=== PATIENT | male | born 1945 | race Caucasian/White ===

== ENCOUNTER 2024-03-03 12:58 | Emergency (ER) | payer OTHER, SELFPAY ==
[2024-03-03 13:10] VITALS: BP 120/70; PULSE 63; RESP 17; TEMP 36.8; O2SAT 96; BMI 25.8
--- NOTE | 2024-03-03 13:27 | USR_ITS ---
PROCEDURE INFORMATION: Exam: US Scrotum Exam date and time: 03/03/2024 2:30 PM Age: 78 years old Clinical indication: Edema; Prior surgery; Surgery date: <1 month; Surgery type: Not in the scrotum, but patient had bilateral inguinal hernia repairs nine days ago; Additional info: Scrotal swelling TECHNIQUE: Imaging protocol: Real-time ultrasound of the scrotum and contents with color Doppler and image documentation. COMPARISON: No relevant prior studies available. FINDINGS: Right testicle: Normal. No mass. Normal color Doppler and arterial waveforms. No torsion. Left testicle: Small scattered calcifications noted. No mass. Normal color Doppler and arterial waveforms. No torsion. Epididymides: Epididymal cysts on right side largest measuring 2.1 x 1.8 cm. Left epididymis show heterogeneous appearance with diffuse increased vascularity. Scrotum/soft tissues: 2 x 1.4 x 3 cm loculated fluid seen within the right scrotal sac with internal echoes. No blood flow identified. Small bilateral hydrocele. Diffuse skin thickening of the scrotum bilaterally US/US scrotum [id number] IMPRESSION: 1. No evidence of torsion. 2. Increased vascularity and heterogeneous appearing left epididymis suspicious for epididymitis. 3. 2 x 1.4 x 3 cm loculated fluid within the right scrotal sac. Possible seroma. Recommend follow-up. 4. Diffuse scrotal wall thickening throughout. No significant loculated fluid within the scrotal wall identified. 5. Small bilateral hydroceles. 6. Consider CT scan if there is concern for hernia repair related changes in the pelvis/inguinal canal.
--- NOTE | 2024-03-03 13:27 | CTR_ITS ---
PROCEDURE INFORMATION: Exam: CT Abdomen And Pelvis With Contrast Exam date and time: 03/03/2024 3:08 PM Age: 78 years old Clinical indication: Pain; Other: Scrotum; Prior surgery; Surgery date: 3-7 days post-operative; Surgery type: Inguinal hernia; Additional info: Post inguinal hernia repair scrotal swelling TECHNIQUE: Imaging protocol: Computed tomography of the abdomen and pelvis with contrast. Radiation optimization: All CT scans at this facility use at least one of these dose optimization techniques: automated exposure control; mA and/or kV adjustment per patient size (includes targeted exams where dose is matched to clinical indication); or iterative reconstruction. Contrast material: OMNI 350; Contrast volume: 100 ml; Contrast route: INTRAVENOUS (IV); COMPARISON: US scrotum [id number] 03/03/2024 2:30 PM RADIATION DOSE METRICS: Total DLP (mGy-cm): 775.66 FINDINGS: Lungs: Mild atelectatic changes. Liver: Unremarkable. Gallbladder and biliary ducts: Normal. Pancreas: Normal. No ductal dilation. Spleen: Normal. No splenomegaly. Adrenal glands: Normal. Kidneys and ureters: Normal. No hydronephrosis. Stomach and bowel: Mild wall thickening and edema of proximal sigmoid colon in left anterior pelvis. Appendix: No evidence of appendicitis. Intraperitoneal space: No free air. No significant fluid collection. Vasculature: No abdominal aortic aneurysm. Atherosclerotic calcifications noted in aorta and iliac vessels. Lymph nodes: No enlarged lymph nodes. Urinary bladder: Unremarkable as visualized. Reproductive: There is fluid and small amount of air in left inguinal canal. Fluid extends to left scrotum. Diffuse skin thickening and edema of entire scrotum. Minimal hypervascularity in left epididymis noted. Focal fat density in proximal aspect of the left inguinal canal noted likely from postoperative change. Bones/joints: No acute fracture. Soft tissues: Left inguinal canal findings as above. CT/CT abdomen pelvis w con* [id number] IMPRESSION: 1. Fluid-filled left inguinal canal extending to left scrotum. Very small pockets air noted proximally. Diffuse edema of the scrotum. Postop change with fluid and inflammation suspected. Infection cannot be excluded. Correlate clinically. 2. Minimal inflammation of proximal sigmoid colon in left anterior pelvis without signs of obstruction.
--- NOTE | 2024-03-03 13:28 | ED_ITS ---
HPI - Male Genitourinary 2 General: Chief complaint: Urogenital-Male Stated complaint: swollen scrotum Time Seen by Provider: 03/03/24 13:14 History of Present Illness: 78-year-old male patient comes in today for concerns of scrotal swelling. On exam patient appears nontoxic. Patient had a inguinal hernia repair on the and has been using ice packs and baths to help with the swelling. Patient reports minimal to no pain. Patient has completed antibiotics. Patient denies any fever or night sweats. Review of Systems 2 General: Reports: 10 or more systems reviewed and unremarkable except in HPI and below Physical Exam 2 Const: COMMON NORMALS: alert HENMT: COMMON NORMALS: normocephalic HEAD & SCALP: normocephalic Neck/C-Spine: COMMON NORMALS: full ROM Resp: COMMON NORMALS: normal respiratory effort and clear to auscultation bilaterally AUSCULTATION: clear to auscultation bilaterally Cardio: COMMON NORMALS: regular rate RATE: regular rate GI: COMMON NORMALS: Soft to palpation and non-tender PALPATION: Yes Soft to palpation : SCROTUM: No Scrotal tenderness present, Yes erythematous, Yes ecchymosis, Yes edematous and Yes scrotal swelling Back/Pelvis: COMMON NORMALS: thoracic and lumbar spine normal to inspection Extremity: COMMON NORMALS: normal to inspection Neuro: SENSORIUM/ORIENTATION: Yes alert Skin: COMMON NORMALS: turgor normal GENERAL SKIN EXAM: turgor normal Course 2 Vital Signs: Vital signs: Vital Signs Temperature 98.3 F 03/03/24 13:10 Pulse Rate 66 03/03/24 16:00 Respiratory Rate 17 03/03/24 13:10 Blood Pressure 119/75 03/03/24 16:00 Pulse Oximetry 95 03/03/24 16:00 Oxygen Delivery Me thod Room Air 03/03/24 16:00 MDM - Male Medical Decision Making Patient had a inguinal hernia repair on the . Patient has had some increasing scrotal swelling which has had some waxing and waning and improvement with ice packs and ice bath. Patient reports no significant pain or any fever or night sweats. Exam notes some edematous scrotum with some erythema and some ecchymosis. Patient has bruising around the umbilicus. Bowel sounds are present. Abdomen soft nontender. Vital signs are normal. Differential diagnosis includes scrotal edema, surgical abscess, surgical seroma, wound infection. CBC and CMP was unremarkable. Ultrasound noted significant fluid in the scrotum with some mild induration but good blood flow to both testicles. There also seem to be some epididymitis. CT of the abdomen pelvis saw postsurgical changes with fluid and some inflammation. It could not be ruled out there was a infection along the surgical site. Believe most likely patient has a seroma with a possible infection. Will go ahead and treat with Cipro and Flagyl and recommend follow-up with surgeons office in the morning. Patient reported understanding and agreed to plan. Lab Data 03/03/24 13:30 03/03/24 13:30 Radiology Impressions Abdomen/Pelvis CT 03/03/24 13:27 IMPRESSION: 1. Fluid-filled left inguinal canal extending to left scrotum. Very small pockets air noted proximally. Diffuse edema of the scrotum. Postop change with fluid and inflammation suspected. Infection cannot be excluded. Correlate clinically. 2. Minimal inflammation of proximal sigmoid colon in left anterior pelvis without signs of obstruction. Scrotum Ultrasound 03/03/24 13:27 IMPRESSION: 1. No evidence of torsion. 2. Increased vascularity and heterogeneous appearing left epididymis suspicious for epididymitis. 3. 2 x 1.4 x 3 cm loculated fluid within the right scrotal sac. Possible seroma. Recommend follow-up. 4. Diffuse scrotal wall thickening throughout. No significant loculated fluid within the scrotal wall identified. 5. Small bilateral hydroceles. 6. Consider CT scan if there is concern for hernia repair related changes in the pelvis/inguinal canal. Laboratory Results WBC 7.48 10^3/uL (3.29-11.43) 03/03/24 13:30 RBC 4.27 10^6/uL (3.85-5.65) 03/03/24 13:30 Hgb 13.30 g/dL (11.27-16.99) 03/03/24 13:30 Hct 39.8 % (37-53) 03/03/24 13:30 MCV 93.2 fl (82-101) 03/03/24 13:30 MCH 31.1 pg (27-33) 03/03/24 13:30 MCHC 33.4 g/dL (30-55) 03/03/24 13:30 RDW 12.8 % (12.1-15.1) 03/03/24 13:30 Plt Count 210 10^3/cmm (157-399) 03/03/24 13:30 MPV 9.3 fL (7.4-10.4) 03/03/24 13:30 Neut % (Auto) 54.3 % 03/03/24 13:30 Lymph % (Auto) 24.5 % 03/03/24 13:30 Caswell % (Auto) 14.7 % 03/03/24 13:30 Eos % (Auto) 5.6 % 03/03/24 13:30 Baso % (Auto) 0.5 % 03/03/24 13:30 Neut # (Auto) 4.06 10^3/uL (1.8-7.7) 03/03/24 13:30 Lymph # (Auto) 1.8 10^3/uL (0.8-4.8) 03/03/24 13:30 Caswell # (Auto) 1.1 10^3/uL (0.2-0.9) H 03/03/24 13:30 Eos # (Auto) 0.4 10^3/uL (0.0-0.8) 03/03/24 13:30 Baso # (Auto) 0.0 10^3/uL (0.0-0.1) 03/03/24 13:30 Nucleated RBC % (auto) 0 % 03/03/24 13:30 Nucleated RBCs # 0.0 /100WBC 03/03/24 13:30 Sodium 140 mmol/L (136-145) 03/03/24 13:30 Potassium 4.1 mmol/L (3.5-5.1) 03/03/24 13:30 Chloride 103 mmol/L (98-107) 03/03/24 13:30 Carbon Dioxide 25 mmol/L (22-29) 03/03/24 13:30 Anion Gap 16.1 (5-19) 03/03/24 13:30 BUN 16 mg/dL (8-23) 03/03/24 13:30 Creatinine 0.8 mg/dL (0.7-1.2) 03/03/24 13:30 GFR Calculation Not Reportable 03/03/24 13:30 Glucose 112 mg/dL (65-115) 03/03/24 13:30 Calculated Osmolality 292 mOsm/kg (285-295) 03/03/24 13:30 Calcium 9.7 mg/dL (8.5-10.5) 03/03/24 13:30 Total Bilirubin 0.5 mg/dL (0.15-1.2) 03/03/24 13:30 AST 19 U/L (0-40) 03/03/24 13:30 ALT 14 U/L (0-41) 03/03/24 13:30 Alkaline Phosphatase 68 U/L (40-130) 03/03/24 13:30 Total Protein 7.8 g/dL (6.6-8.7) 03/03/24 13:30 Albumin 3.9 g/dL (3.5-5.2) 03/03/24 13:30 Globulin 3.9 g/dL (1.3-4.6) 03/03/24 13:30 All radiology interpretation(s) finalized by discharge Discharge Plan Discharge Patient Disposition: Home Clinical Impression: Seroma after procedure Condition: Stable Prescriptions: New Cipro 500 mg tablet 500 mg PO BID Qty: 14 0RF metronidazole 500 mg tablet 500 mg PO BID 7 Days Qty: 14 0RF Discharge Orders: Discharge ED (Routine); Ordered 03/03/24 Ordered By: Pepe Ortiz Referrals: Celine Murry MD [Primary Care Provider] - Discharge Diet: Usual diet Discharge Activity: Increase activity as tolerated Patient Instructions: Seroma (DC) Activity Restrictions/Additional Instructions: Take antibiotics as directed. Wear tight supporting underwear to help with the swelling. Continue with ice packs or ice baths for further swelling. Follow-up with surgeon in the morning for further evaluation and treatment. Return to ER for new concerns or worsening symptoms such as fever greater than 100.4, or uncontrolled pain. Coding Level of Care Code ED Telephone Assembler for Ebenezer Hughes
[2024-03-03 13:40] LABS: Basophils % 0.5 %; Eosinophils # 0.4 10^3/uL (0.0-0.8); Eosinophils % 5.6 %; Hematocrit 39.8 % (37-53); Lymphocytes # 1.8 10^3/uL (0.8-4.8); Lymphocytes % 24.5 %; Mean Corpuscular HGB Conc 33.4 g/dL (30-55); Mean Corpuscular Hemoglobin 31.1 pg (27-33); Mean Corpuscular Volume 93.2 fl (82-101); Mean Platelet Volume 9.3 fL (7.4-10.4); Monocytes # 1.1 10^3/uL (0.2-0.9); Monocytes % 14.7 %; Neutrophils # 4.06 10^3/uL (1.8-7.7); Neutrophils % 54.3 %; Nucleated Red Blood Cells % 0 %; Platelet Count 210 10^3/cmm (157-399); Red Blood Count 4.27 10^6/uL (3.85-5.65); Red Cell Distribution Width 12.8 % (12.1-15.1); White Blood Count 7.48 10^3/uL (3.29-11.43)
[2024-03-03 14:01] LABS: Alanine Aminotransferase 14 U/L (0-41); Albumin Level 3.9 g/dL (3.5-5.2); Alkaline Phosphatase 68 U/L (40-130); Anion Gap 16.1 (5-19); Aspartate Amino Transferase 19 U/L (0-40); Blood Urea Nitrogen 16 mg/dL (8-23); Calcium 9.7 mg/dL (8.5-10.5); Carbon Dioxide 25 mmol/L (22-29); Chloride 103 mmol/L (98-107); Creatinine Clr Calc Pharmacy 82.4129; Globulin 3.9 g/dL (1.3-4.6); Glucose 112 mg/dL (65-115); Osmolality Calculated 292 mOsm/kg (285-295); Potassium 4.1 mmol/L (3.5-5.1); Sodium 140 mmol/L (136-145); Total Bilirubin 0.5 mg/dL (0.15-1.2); Total Protein 7.8 g/dL (6.6-8.7)
[2024-03-03 14:16] VITALS: BP 113/65; PULSE 57; O2SAT 94
[2024-03-03 14:51] VITALS: BP 130/77; PULSE 54; O2SAT 100
[2024-03-03] MEDS: iohexol 350 mg/mL 500 mL Btl (per mL) IV (15:10)
[2024-03-03 16:00] VITALS: BP 119/75; PULSE 66; O2SAT 95
[2024-03-03] MEDS: metroNIDAZOLE 500 MG Tablet PO (16:27)
[2024-03-03] MEDS: ciprofloxacin 500 mg Tablet PO (16:27)
[2024-03-03 16:32] VITALS: BP 119/75; PULSE 59; O2SAT 100
== END 2024-03-03 16:34 | disposition home or self-care (01) ==
PROVIDERS: Emergency Provider Nurse Practitioner Family; PCP Family Medicine
DX: N99.842 Postprocedural seroma of a genitourinary system organ or structure following a genitourinary system procedure (principal)
CPT/HCPCS: 74177; 76870; 80053; 85025; 99285; Q9967

== ENCOUNTER 2024-11-20 20:13 | Emergency (ER) | payer OTHER, SELFPAY ==
[2024-11-20 20:25] VITALS: BP 134/80; PULSE 64; RESP 16; TEMP 36.8; O2SAT 98
--- NOTE | 2024-11-20 20:38 | ECG_ITS ---
[facility] [place] [facility] Date: 2024-11-20 Pat Name: Bradly Carrillo Department: Room: Gender: Male Shop Supervisor: : 1945 Requested By: Kartik Mandujano Order Number: [id number] Sean MD: Tony Samuel M.D. Measurements Intervals [place] Rate: 59 P: 58 LA: 161 QRS: 27 QRSD: 89 T: 22 QT: 390 QTc: 389 Interpretive Statements SINUS BRADYCARDIA No previous ECG available for comparison Electronically Signed On 11-22-2024 19:08:41 CDT by Tony Samuel M.D. [email or web address]
--- NOTE | 2024-11-20 20:52 | XRR_ITS ---
PROCEDURE INFORMATION: Exam: XR Chest Exam date and time: 11/20/2024 9:06 PM Age: 79 years old Clinical indication: Cough and fever TECHNIQUE: Imaging protocol: Radiologic exam of the chest. Views: 1 view. COMPARISON: CT abdomen pelvis w con* [id number] 03/03/2024 3:08 PM FINDINGS: Lungs: Unremarkable. No consolidation. Pleural spaces: Unremarkable. No pleural effusion. No pneumothorax. Heart/Mediastinum: Unremarkable. No cardiomegaly. Bones/joints: Unremarkable. XR/XR chest 1V portable [id number] IMPRESSION: No acute findings.
[2024-11-20 21:38] LABS: Influenza A NEGATIVE (Negative); Influenza B NEGATIVE (Negative); Respiratory Syncytial Virus Ce NEGATIVE (Negative); SARS-CoV-2 PCR NEGATIVE (Negative)
--- NOTE | 2024-11-20 21:53 | ED_ITS ---
HPI - URI/Sore Throat General: Chief Complaint: Upper Respiratory Infection Stated Complaint: va sent poss scarlet fever and arrythmia Time Seen by Provider: 11/20/24 20:40 History of Present Illness: This patient is a 79-year-old white male who presents to the emergency department with flulike symptoms. He states he has had quite a bit of thick upper respiratory congestion. States he was exposed to strep throat about a week ago and was placed on amoxicillin. He only has 1 day left on that prescription. The reason he came into the emergency department tonight as he has a couple of dizzy spells today. No chest pain. No shortness of breath. He has not had a fever. He does have a history of atrial fibrillation states he had a couple of brief episodes of A-fib years ago and he was concerned that maybe that was causing his dizziness. Associated symptoms: Reports nasal congestion Related Data Previous Rx's ?Medication ?Instructions ?Recorded ciprofloxacin HCl 500 mg tablet 500 mg PO BID #14 tabs 03/03/24 (Cipro) Allergies Allergy/AdvReac Type Severity Reaction Status Date / Time Milk Containing Products Allergy ALGY-Conges Verified 03/03/24 13:17 (Dairy) kaylynn shellfish derived Allergy ALGY-Conges Verified 03/03/24 13:17 kaylynn Review of Systems General: Reports: 10 or more systems reviewed and unremarkable except in HPI and below ENMT: Reports: nasal congestion Neuro: Reports: dizziness Physical Exam Const: COMMON NORMALS: no acute distress, patient oriented x3 and no limit ations GENERAL APPEARANCE: cooperative and comfortable HENMT: COMMON NORMALS: normocephalic, atraumatic, moist oral mucous membranes and oropharynx normal HEAD & SCALP: normal to inspection, normocephalic and atraumatic FACE & SINUS: normal facial exam NOSE: Nasal discharge present Eye: COMMON NORMALS: Equal, round and reactive pupils present, EOMs intact bilaterally and conjunctivae normal GENERAL EYE: appearance normal, both eyes and all related structures CONJUNCTIVA: Yes conjunctivae normal PUPIL: Yes Equal, round and reactive pupils present Neck/C-Spine: COMMON NORMALS: supple and no JVD Chest: COMMONS NORMALS: normal inspection of the chest Resp: COMMON NORMALS: normal respiratory effort and clear to auscultation bilaterally AUSCULTATION: clear to auscultation bilaterally Cardio: COMMON NORMALS: no JVD, regular rate, regular rhythm, No gallops present (Cardio), No murmurs present (Cardio) and No rub (Cardio) RATE: regular rate RHYTHM: regular rhythm GI: COMMON NORMALS: Normal to inspection, nondistended, normoactive bowel sounds present, Soft to palpation and non-tender AUSCULTATION: Yes normoactive bowel sounds PALPATION: Yes Soft to palpation : COMMON NORMALS: Yes no CVA tenderness BLADDER/KIDNEY EXAM: Yes no CVA tenderness Back/Pelvis: COMMON NORMALS: no CVA tenderness and thoracic and lumbar spine normal to inspection Extremity: COMMON NORMALS: normal to inspection Neuro: COMMON NORMALS: patient oriented x3 and CN's II-XII intact bilaterally Psych: COMMON NORMALS: mental status grossly normal, Normal thought process present and cooperative THOUGHT PROCESS: Normal thought process present Skin: COMMON NORMALS: no rashes or lesions noted, turgor normal and no jaundice GENERAL SKIN EXAM: no rashes or lesions noted and turgor normal Course Vital Signs: Vital signs: Vital Signs Temperature 98.2 F 11/20/24 20:25 Pulse Rate 64 11/20/24 20:25 Respiratory Rate 16 11/20/24 20:25 Blood Pressure 134/80 11/20/24 20:25 Pulse Oximetry 98 11/20/24 20:25 MDM - URI/Sore Throat Medical Decision Making EKG revealed normal sinus rhythm with no ST segment abnormalities. Chest x-ray did not reveal any infiltrates. No cardiomegaly or pleural effusions. COVID negative, RSV negative and influenza negative. Patient was discharged in stable condition instructed to take [id number] cough and cold medications. Follow-up with his primary care physician as needed. Lab Data Radiology Impressions Chest X-Ray 11/20/24 20:52 IMPRESSION: No acute findings. Laboratory Results Influenza A (PCR) Negative (Negative) 11/20/24 20:56 Influenza Type B (PCR) Negative (Negative) 11/20/24 20:56 RSV (PCR) Negative (Negative) 11/20/24 20:56 SARS-CoV-2 (PCR) Negative (Negative) 11/20/24 20:56 All radiology interpretation(s) finalized by discharge Discharge Plan Discharge Patient Disposition: Home Clinical Impression: Upper respiratory infection Qualifiers: URI type: unspecified viral URI Qualified Code(s): J06.9 - Acute upper respiratory infection, unspecified Condition: Stable Prescriptions: No Action Cipro 500 mg tablet 500 mg PO BID Qty: 14 0RF Discharge Orders: Discharge ED (Routine); Ordered 11/20/24 Ordered By: Kennedy Alcazar Referrals: Celine Murry MD [Primary Care Provider] - Patient Instructions: Upper Respiratory Infection (DC) Print Language: Sierra Leonean Coding Level of Care Code ED Vp Digital Marketing for Ebenezer Hughes
[2024-11-20 22:05] VITALS: BP 129/67; PULSE 64; RESP 16; O2SAT 97
== END 2024-11-20 22:06 | disposition home or self-care (01) ==
PROVIDERS: Emergency Provider Emergency Medicine; PCP Family Medicine
DX: J06.9 Acute upper respiratory infection, unspecified (principal); Z11.52 Encounter for screening for COVID-19
CPT/HCPCS: 71045; 87637; 93005; 99284

== ENCOUNTER 2025-03-18 11:52 | Outpatient (CLI) | payer OTHER, SELFPAY ==
--- NOTE | 2025-03-18 13:09 | USCV_ITS ---
Bradly Carrillo Age: 79 Gender: M : 1945 Exam Date: 03/18/2025 13:15 Ordering Phys: Celine Murry MD Technologist: [facility]R [place] [facility] [place]: [place] Risk Factors: Previous Vascular Surgery: Right Brachial BP: / Left Brachial BP: / Right Left Velocity (cm/s) Spectral Plaque Velocity (cm/s) Spectral Plaque Syst/Diast Broadening Syst/Diast Broadening 110.90/23.70 Prox CCA 100.60/ 28.10 97.80/ 25.90 Mid CCA 110.90/ 30.30 80.40/ 21.60 Distal CCA 75.80 / 21.50 44.80/ 16.00 Prox ICA 42.40 / 10.20 56.10/ 13.30 Mid ICA 67.20 / 21.00 35.40/ 6.40 Distal ICA 60.50 / 21.00 38.10 ECA 48.30 0.70 ICA/CCA 0.90 Antegrade Vertebral Antegrade 20.50/ 4.60 cm/s 25.30/ 6.60 cm/s Tri Subclavian Bi 69.00 45.70 CONCLUSIONS Right ICA stenosis <50%. Mild atheromatous plaque right carotid bulb/ICA. Left ICA stenosis <50%. Mild atheromatous plaque left carotid bulb/ICA. Normal antegrade Doppler flow noted in the right vertebral artery. Normal antegrade Doppler flow noted in the left vertebral artery. Ever Pineda MD (Electronically Signed) Final Date: 18 March 2025 15:50 S
== END 2025-03-18 11:53 | disposition home or self-care (01) ==
LOC: RAD 11:54
PROVIDERS: PCP Family Medicine; Visit Provider Family Medicine
DX: I65.23 Occlusion and stenosis of bilateral carotid arteries (principal); R41.3 Other amnesia
CPT/HCPCS: 93880

== ENCOUNTER 2025-03-24 12:36 | Outpatient (CLI) | payer OTHER, SELFPAY ==
--- NOTE | 2025-03-24 12:42 | MR_ITS ---
WS: [id number] MRI BRAIN WITH AND WITHOUT CONTRAST HISTORY: DEMENTIA COMPARISON: None available. TECHNIQUE: Multiplanar imaging performed through the brain with MultiHance 16 ml's IV. No acute infarcts are seen. Jordan-white matter differentiation is well preserved. Moderate symmetric atrophy with mild small vessel changes surrounding the ventricles and in the subcortical white matter. No large prior infarct. Mild hippocampal atrophy. No susceptibility artifacts or prior lacunar infarcts. Ventricles and extra-axial spaces are mildly enlarged on the basis of atrophy. Clivus and pituitary gland are normal. Visualized posterior fossa and brainstem are also normal. Postcontrast images are negative for masses or vascular malformations. Dural venous sinuses are normal. Paranasal sinuses: Well aerated with no significant disease. Mastoid air cells: Normal. Calvarium and scalp: Normal. MR/MR head wo/w con [id number] IMPRESSION: 1. No acute infarct, hemorrhage or mass. 2. Moderate symmetric atrophy and mild small vessel disease. 3. Mild hippocampal atrophy. 4. Mildly prominent ventricles and extra-axial spaces secondary to atrophy.
[2025-03-24] MEDS: gadobenate dimeglumine 20 mL vial 16 ML IV (13:35)
== END 2025-03-24 12:37 | disposition home or self-care (01) ==
LOC: RAD 12:37
PROVIDERS: PCP Family Medicine; Visit Provider Family Medicine
DX: I67.89 Other cerebrovascular disease (principal); G31.9 Degenerative disease of nervous system, unspecified; F03.90 Unspecified dementia, unspecified severity, without behavioral disturbance, psychotic disturbance, mood disturbance, and anxiety
CPT/HCPCS: 70553; A9577

== ENCOUNTER 2025-04-07 20:00 | Outpatient (CLI) | payer OTHER, SELFPAY | END 2025-04-07 20:01 | disposition home or self-care (01) | LOC: SLEEP 23:01 | PROVIDERS: PCP Family Medicine; Referring Provider Family Medicine; Visit Provider Internal Medicine Pulmonary Disease | DX: G47.33 Obstructive sleep apnea (adult) (pediatric) (principal); G47.36 Sleep related hypoventilation in conditions classified elsewhere | CPT/HCPCS: 95810 ==

== ENCOUNTER → 2025-05-22 14:20 | Outpatient (BNVA) | payer OTHER, SELFPAY | PROVIDERS: PCP Family Medicine; Visit Provider Internal Medicine | DX: I48.91 Unspecified atrial fibrillation (principal) | CPT/HCPCS: 99204 ==